=== PATIENT | female | born 1985 | race Caucasian/White ===

== ENCOUNTER → 2022-04-04 07:14 | Observation (INO) ==
[~2022-04-04 07:14] MED LIST: EPHEDrine 50 MG/ML VIAL IVP PRN; Epidural Premix (fent/bupiv) 110 ML EP SCH
== END | disposition home or self-care (01) ==
LOC: 1NENULAB
PROVIDERS: ADMIT Advanced Practice Midwife; ATTEND Advanced Practice Midwife